=== PATIENT | female | born 1955 | race Caucasian/White ===

== ENCOUNTER → 2022-08-20 08:32 | Outpatient (CLI) | payer MEDICARE, SELFPAY ==
--- NOTE | ~2022-08-20 | CT_ITS ---
EXAMINATION: CT soft tissue neck wo con DATE: 08/20/2022 08:47 INDICATION: Nodule of subcutaneous tissue of neck. Left neck pain. TECHNIQUE: Computed tomography (CT) of the neck was performed without intravenous contrast. Automated exposure control and iterative reconstruction technique were employed. The dose-length product was 4 00.27 mGy-cm. COMPARISON: None FINDINGS: There are no pathologically enlarged lymph nodes. The major salivary glands are normal. The pharyngeal mucosal space and larynx are normal. There is severe spondylosis at C6-C7 and mild spondy losis at other cervical levels. IMPRESSION: 1. No abnormal neck mass or lymphadenopathy. Reviewed, dictated and finalized at location B.
== END ==
PROVIDERS: PCP Family Medicine; Visit Provider Nurse Practitioner Adult Health
DX: R22.1 Localized swelling, mass and lump, neck (principal)
CPT/HCPCS: 70490

== ENCOUNTER 2023-02-12 16:13 | Emergency (ER) | payer MEDICARE, SELFPAY ==
--- NOTE | ~2023-02-12 | XR_ITS ---
EXAMINATION: XR chest 2V Exam Date/Time: 02/12/2023 16:31 CDT HISTORY: cp, RADIATING UP SHOULDER AND TO NECK Comparison: 01/20/2017. RESULT: Lines, tubes, and devices: None. Lungs and pleura: Mild reticulonodular opacities. Cardiomediastinal silhouette: Stable. Other: No acute osseous or upper abdominal finding. IMPRESSION: Pulmonary opacities may represent bronchiolitis, as can be seen with atypical infection, asthma, aspi ration, and small airways disease. Reviewed, dictated and finalized at location K. IMPRESSION: Pulmonary opacities may represent bronchiolitis, as can be seen with atypical i nfection, asthma, aspiration, and small airways disease.
--- NOTE | 2023-02-12 16:14 | ECG_ITS ---
Measurements Intervals [place] Rate: 107 P: 40 WV: 135 QRS: 17 QRSD: 92 T: 39 QT: 341 QTc: 456 Interpretive Statements SINUS TACHYCARDIA POSSIBLE LEFT ATRIAL ENLARGEMENT [-0.1mV P WAVE IN V1/V2] NONSPECIFIC ST & T-WAVE ABNORMALITY ABNORMAL RHYTHM ECG NO PREVIOUS ECG AVAILABLE FOR COMPARISON Electronically Signed On 02-12-2023 18:25:13 CDT by Dieudonne Reyna M.D.
[2023-02-12 16:17] VITALS: BP 174/95; PULSE 58; RESP 18; TEMP 36.7; O2SAT 97
[2023-02-12 16:38] LABS: Basophils Absolute Auto 0.1 K/mm3 (0.0-0.1); Basophils Percent Auto 0.6 % (0.2-1.2); Eosinophils Absolute Auto 0.2 K/mm3 (0-0.3); Eosinophils Percent Auto 1.5 % (0-4.4); Hematocrit 46.7 % (37.0-47.0); Hemoglobin 15.1 g/dL (12.0-15.0); Immature Granulocyte Absolute 0.05 K/mm3 (0.00-0.031); Immature Granulocyte Percent A 0.3 % (0-0.5); Lymphocytes Absolute Auto 2.74 K/mm3 (0.9-3.2); Lymphocytes Percent Auto 19.1 % (18.3-44.2); Mean Corpuscular HGB Conc 32.3 g/dl (32-36); Mean Corpuscular Hemoglobin 31.8 pg (26-34); Mean Corpuscular Volume 98.3 fl (80-100); Mean Platelet Volume 10.8 fl (7.4-10.4); Monocytes Absolute Auto 0.9 K/mm3 (0.1-0.6); Monocytes Percent Auto 6.4 % (2.6-8.5); Neutrophils Absolute Auto 10.3 K/mm3 (1.3-6.7); Neutrophils Percent Auto 72.1 % (45.5-73.1); Platelet Count Result 246 k/mm3 (150-375); Red Blood Count 4.75 M/mm3 (4.2-5.4); Red Cell Distribution Width 13.2 % (11.5-14.5); White Blood Count 14.3 K/mm3 (4.5-10.0)
[2023-02-12 16:48] LABS: Alanine Aminotransferase 54 U/L (6-35); Alkaline Phosphatase 132 U/L (38-126); Anion Gap 9 mmol/L (8-16); Aspartate Amino Transferase 46 U/L (14-36); Bilirubin,Total 0.7 mg/dL (0.2-1.3); Blood Urea Nitrogen 19 mg/dL (7-17); Calcium 9.3 mg/dL (8.4-10.2); Carbon Dioxide 22 mmol/L (22-30); Chloride 106 mmol/L (98-107); Estimated Glomerular Filt Rate > 60; Glucose 101 mg/dL (65-110); Lipase 16 U/L (23-300); Potassium 4.5 mmol/L (3.4-5.0); Sodium 137 mmol/L (137-145)
[2023-02-12 16:53] LABS: Prothrombin Time 13.2 Seconds (11.1-14.7)
[2023-02-12 16:54] LABS: Partial Thromboplastin Time 23.9 SECONDS (22.3-36.8)
[2023-02-12 16:59] LABS: Troponin I 0.032 ng/mL (0.000-0.034)
--- NOTE | 2023-02-12 17:16 | PC.NURSE ---
pt states she feels better and is going home. instructed pt to return if symptoms worsen. ambulated from er without difficulty
== END 2023-02-12 19:07 | disposition left against medical advice (07) ==
PROVIDERS: Emergency Provider General Practice; PCP Family Medicine
DX: R07.9 Chest pain, unspecified (principal)
CPT/HCPCS: 36415; 71046; 80053; 83690; 84484; 85025; 85610; 85730; 93005; 99199

== ENCOUNTER 2023-08-06 20:26 | Observation (INO) | payer MEDICARE, SELFPAY ==
--- NOTE | ~2023-08-06 | XR_ITS ---
EXAMINATION: XR chest 1V portable Exam Date/Time: 08/06/2023 21:00 CDT HISTORY: SOB, COUGH X 1 WEEK Comparison: 02/12/2023. RESULT: Lines, tubes, and devices: None. Lungs and pleura: Moderate mid and lower lung reticular opacities with cuffing. Cardiomediastinal silhouette: Stable. Other: No acute osseous or upper abdominal finding. IMPRESSION: Moderate interstitial edema. Reviewed, dictated and finalized at location K.
[2023-08-06 20:29] VITALS: BP 142/112; PULSE 101; RESP 16; TEMP 36.6; O2SAT 95
[2023-08-06 20:43] VITALS: BP 167/99; PULSE 100; RESP 19; O2SAT 95
[2023-08-06 20:45] VITALS: O2SAT 95
--- NOTE | 2023-08-06 20:47 | PC.NURSE ---
Pt states she no longer wanted to be on oxygen because it is burning my sinuses . Pt took NC off. This RN shut oxygen off and will notify EDP.
[2023-08-06 20:48] VITALS: O2SAT 94
--- NOTE | 2023-08-06 20:54 | ECG_ITS ---
Measurements Intervals [place] Rate: 96 P: 34 VA: 120 QRS: 15 QRSD: 90 T: 85 QT: 367 QTc: 464 Interpretive Statements SINUS RHYTHM POSSIBLE LEFT ATRIAL ENLARGEMENT [-0.1mV P WAVE IN V1/V2] NONSPECIFIC ST & T-WAVE ABNORMALITY COMPARED TO ECG 02/12/2023 16:20:14 SINUS RHYTHM NOW PRESENT Electronically Signed On 08-07-2023 12:42:29 CDT by Dieudonne Reyna M.D.
[2023-08-06 21:49] LABS: Basophils Absolute Auto 0.1 K/mm3 (0.0-0.1); Basophils Percent Auto 0.6 % (0.2-1.2); Eosinophils Absolute Auto 0.2 K/mm3 (0-0.3); Eosinophils Percent Auto 1.7 % (0-4.4); Hematocrit 42.2 % (37.0-47.0); Hemoglobin 13.6 g/dL (12.0-15.0); Immature Granulocyte Absolute 0.03 K/mm3 (0.00-0.031); Immature Granulocyte Percent A 0.3 % (0-0.5); Lymphocytes Absolute Auto 1.96 K/mm3 (0.9-3.2); Lymphocytes Percent Auto 18.6 % (18.3-44.2); Mean Corpuscular HGB Conc 32.2 g/dl (32-36); Mean Corpuscular Hemoglobin 31.6 pg (26-34); Mean Corpuscular Volume 98.1 fl (80-100); Mean Platelet Volume 11.3 fl (7.4-10.4); Monocytes Absolute Auto 0.7 K/mm3 (0.1-0.6); Monocytes Percent Auto 6.4 % (2.6-8.5); Neutrophils Absolute Auto 7.6 K/mm3 (1.3-6.7); Neutrophils Percent Auto 72.4 % (45.5-73.1); Platelet Count Result 202 k/mm3 (150-375); Red Cell Distribution Width 13.5 % (11.5-14.5); White Blood Count 10.5 K/mm3 (4.5-10.0)
[2023-08-06 21:58] LABS: Alanine Aminotransferase 68 U/L (6-35); Albumin Level 4.2 g/dL (3.5-5.1); Alkaline Phosphatase 123 U/L (38-126); Anion Gap 10 mmol/L (8-16); Aspartate Amino Transferase 41 U/L (14-36); Bilirubin,Total 0.5 mg/dL (0.2-1.3); Blood Urea Nitrogen 20 mg/dL (7-17); Calcium 8.8 mg/dL (8.4-10.2); Carbon Dioxide 22 mmol/L (22-30); Chloride 108 mmol/L (98-107); Estimated CRCL calculation 64 ml/min; Estimated Glomerular Filt Rate > 60; Glucose 109 mg/dL (65-110); Potassium 3.6 mmol/L (3.4-5.0); Sodium 140 mmol/L (137-145)
[2023-08-06 22:10] VITALS: BP 164/98; PULSE 96; RESP 20; O2SAT 95
[2023-08-06 23:30] LABS: NT Pro B Type Natriuretic Pept 3650 pg/mL (19.9-100); Troponin I 0.042 ng/mL (0.000-0.034)
--- NOTE | 2023-08-06 23:41 | ED.GENADULT ---
HPI - General Adult General Chief complaint: Shortness of Breath/Dyspnea Stated complaint: sob for about a week, worse today Time Seen by Provider: 08/06/23 21:28 History of Present Illness HPI narrative: This is a 60-year-old female presenting with 3 weeks of fatigue. Patient notes that she has had increased cough, dyspnea on exertion and has been waking up from sleep gasping for air. She also has swelling of her ankles that improves when she lays down at night and gets worse throughout the day. She has no history of heart failure. She denies fever chills chest pain abdominal pain or viral symptoms. Related Data Allergies Allergy/AdvReac Type Severity Reaction Status Date / Time codeine Allergy Unknown SEVERE Verified 08/06/23 20:49 STOMACH CRAMPS/N/V latex Allergy Unknown HIVES Verified 08/06/23 20:49 hydrocodone AdvReac Unknown NAUSEA/VOMI Verified 08/06/23 20:49 TING propoxyphene AdvReac Unknown SEVERE Verified 08/06/23 20:49 NAUSEA/VOMITING Exam Narrative: APPEARANCE: No apparent distress. Head: atraumatic. EYES: EOMI, NOSE: Atraumatic NECK: Trachea midline RESPIRATORY: Crackles in the lung bases, no peripheral edema, speaking in full sentences CARDIOVASCULAR: RRR, no peripheral edema ABDOMINAL: Non-distended MUSCULOSKELETAl: No obvious deformities NEURO: Alert. Moving 4/4 extremities SKIN:: Warm, dry. Normal color PSYCHIATRIC: Normal affect Course Vital Signs Vital signs: Vital Signs Temperature 98 F 08/06/23 20:29 Pulse Rate 101 H 08/06/23 20:29 Respiratory Rate 16 08/06/23 20:29 Blood Pressure 142/112 H 08/06/23 20:29 Pulse Oximetry 95 08/06/23 20:29 Oxygen Delivery Room Air 08/06/23 20:29 Temperature 98 F 08/06/23 20:29 Pulse Rate 100 08/06/23 23:58 Respiratory Rate 18 08/06/23 23:58 Blood Pressure 149/82 H 08/06/23 23:58 Pulse Oximetry 94 08/06/23 23:58 Oxygen Delivery Room Air 08/06/23 20:48 Oxygen Flow Rate 2 08/06/23 20:45 Medical Decision Making MDM Narrative Medical decision making narrative: -Course: 60-year-old female presenting with 3 weeks of dyspnea on exertion and cough. Workup consistent with new onset CHF. Patient will be admitted the hospital for Cardiology evaluation. -DDX includes but is not limited to: New onset CHF, bronchitis, pneumonia, viral syndrome, ACS -Co-morbidities complicating care: hypertension -Social determinants of health: retired labor, lives with her -Hx from independent Sources: at bedside -Independent interpretation of studies: CBC metabolic panel within normal limits. BNP 3600, initial troponin 0.042 chest x-ray showed mild interstitial edema. Independent EKG interpretation: Rhythm [sinus], Rate 96, [place] -[normal], CO -[normal], QRS [narrow], QTC [normal], T waves -[negative for concerning inversions], ST Segments - [Negative for concerning elevations] Final interpretations: [Normal Sinus Rhythm] -Discussion of Management/Consultants: Lawson - Hospitalist -Interventions: 40 mg IV Lasix, 325 mg aspirin -Shared decision making / Disposition: admitted Vital Signs Vital Signs: Vital Signs Temperature 98 F 08/06/23 20:29 Pulse Rate 101 H 08/06/23 20:29 Respiratory Rate 16 08/06/23 20:29 Blood Pressure 142/112 H 08/06/23 20:29 Pulse Oximetry 95 08/06/23 20:29 Oxygen Delivery Room Air 08/06/23 20:29 Temperature 98 F 08/06/23 20:29 Pulse Rate 100 08/06/23 23:58 Respiratory Rate 18 08/06/23 23:58 Blood Pressure 149/82 H 08/06/23 23:58 Pulse Oximetry 94 08/06/23 23:58 Oxygen Delivery Room Air 08/06/23 20:48 Oxygen Flow Rate 2 08/06/23 20:45 Lab Data 08/06/23 21:11 08/06/23 21:11 Labs: Lab Results 08/06/23 08/06/23 08/07/23 Range/Units 21:11 23:04 00:40 WBC 10.5 H (4.5-10.0) K/mm3 RBC 4.30 (4.2-5.4) M/mm3 Hgb 13.6 (12.0-15.0) g/dL Hct 42.2 (37.0-47.0) % MCV 98.1
[2023-08-06 23:47] LABS: Influenza A QL RT-PCR Negative (Negative); Influenza B QL RT-PCR Negative (Negative); RSV RNA, RT-PCR Negative (Negative); SARS-CoV-2 RNA PCR Negative (Negative)
[2023-08-06] MEDS: FUROSEMIDE INJ 40 MG/4 ML VIAL IV PUSH (23:51)
[2023-08-06] MEDS: ASPIRIN 81 MG CHEWABLE TABLET 324 MG PO (23:51)
--- NOTE | 2023-08-06 23:55 | PC.NURSE ---
This RN notified EDP, Dr. Carter of pt feeling nauseated. EDP VORB 4mg zofran IV push. Orders placed by this RN.
[2023-08-06] MEDS: ONDANSETRON INJ 4 MG/2 ML VIAL IV PUSH (23:57)
[2023-08-06 23:58] VITALS: BP 149/82; PULSE 100; RESP 18; O2SAT 94
[2023-08-07] VITALS (21 sets, daily range): BP systolic 131–151; BP diastolic 68–94; PULSE 78–103; RESP 18–22; TEMP 35.7–36.5; O2SAT 95–97; BMI 26.7
--- NOTE | 2023-08-07 | ECHO_ITS ---
Patient Info Name: Fernanda Raya Age: 68 years : 1955 Gender: Female Ht: 67 in Wt: 173 lbs BSA: 1.94 m2 HR: 65 bpm BP: 145 / 85 mmHg Heart Rhythm: Sinus Rhythm Technical Quality: Good Exam Date: 08/07/2023 9:35 AM Exam Location: [facility] Pulmonary Patient Status: Outpatient Admit Date: 08/07/2023 Staff Ordering Physician: Elieser Shukla MD Science Instructor: Satish Palmer RDCS Attending Provider: Ruth Pathak DO Exam Type: CA echo doppler color flow Study Info Indications - CHF Complete two-dimensional, color flow and Doppler transthoracic echocardiogram is performed. Summary 1. Complete two-dimensional, color flow and Doppler transthoracic echocardiogram is performed. 2. Left ventricular chamber dimension is moderately enlarged. 3. There is mildly increased left ventricular wall thickness. 4. Left ventricular systolic function is severely reduced, estimated at 20-25%. 5. There is severe global hypokinesis with more pronounced hypokinesis of the anteroseptal wall. 6. The left ventricular diastolic function is grade I diastolic dysfunction. 7. Right ventricular chamber dimension is normal. 8. Right ventricular systolic function is normal. 9. There is moderate mitral valve regurgitation. 10. There is mild tricuspid valve regurgitation. 11. There is trivial anterior pericardial effusion. Left Ventricle There is severe global hypokinesis with more pronounced hypokinesis of the anteroseptal wall. Left ventricular chamber dimension is moderately enlarged. Left ventricular systolic function is severely reduced, estimated at 20-25%. There is mildly increased left ventricular wall thickness. The left ventricular diastolic function is grade I diastolic dysfunction. Right Ventricle Right ventricular chamber dimension is normal. Right ventricular systolic function is normal. Left Atria Left atrial chamber dimension is normal. Right Atria Right atrial chamber dimension is normal. Atrial Septum Intact interatrial septum visualized by color flow imaging. Aortic Valve The aortic valve is trileaflet. There is no aortic valve stenosis. There is no aortic valve regurgitation. There is mild aortic valve calcification. Pulmonic Valve The pulmonic valve is not well visualized. There is trace pulmonic regurgitation. Mitral Valve There is moderate mitral valve regurgitation. The mitral valve annulus is moderately calcified. Tricuspid Valve There is mild tricuspid valve regurgitation. Pericardium/Pleural The pericardium appears epicardial fat pad. There is trivial anterior pericardial effusion. Inferior Vena Cava Normal inferior vena cava with >50% collapse upon inspiration consistent with normal right atrial pressure, 3 mmHg. Aorta The aortic root size at the sinus of Valsalva is normal. Left Ventricular Outflow Tract Name Value Normal LVOT 2D LVOT Diameter 2.0 cm LVOT Doppler LVOT Peak Gradient 2 mmHg LVOT Mean Gradient 1 mmHg LVOT VTI 17 cm LVOT VTI/AV VTI Ratio 0.6 LVOT Stroke Volume 54 ml LVOT CO
[2023-08-07 01:21] LABS: Troponin I 0.047 ng/mL (0.000-0.034)
--- NOTE | 2023-08-07 03:09 | ADMGEN ---
This patient, Fernanda Raya, was admitted to IMU Room 205-02. Patient/family oriented to hospital policies and general routines including ID bracelet, bed and alarms, visiting hours, pain management, procedures, bathroom and other care routines, personal items, smoking policy, room service/diet, and visiting hours. Information on how to activate the Rapid Response Team has been discussed. Patient/Family are encouraged to report perceived risks to care and to ask questions if they do not understand what they are told or what they should do.
--- NOTE | 2023-08-07 07:46 | PM.IMHP ---
H&P: HPI History of Present Illness Date/Time: 08/07/23 07:46 Chief Complaint: Shortness of breath Narrative: This is a 60-year-old female presenting with 3 weeks of fatigue.? Patient notes that she has had increased cough, dyspnea on exertion and has been waking up from sleep gasping for air.? She also has swelling of her ankles that improves when she lays down at night and gets worse throughout the day.? She has no history of heart failure.? She denies fever chills chest pain abdominal pain or viral symptoms. Review of Systems Review of Systems: - CONSTITUTIONAL: Denies weight loss, fever and chills. - HEENT: Denies changes in vision and hearing - RESPIRATORY: Reports sOB and cough. - CV: Denies palpitations and CP. Reports PND - GI: Denies abdominal pain, nausea, vomiting and diarrhea. - : Denies dysuria and urinary frequency. - MSK: Denies myalgia and joint pain. - SKIN: Denies rash and pruritus. - NEUROLOGICAL: Denies headache and syncope. - PSYCHIATRIC: Denies recent changes in mood. Denies anxiety and depression. [facility] Family History Family History Father Colon cancer Sibling Diabetes mellitus Sibling Acute myocardial infarction Social History Social History Smoking packs per day: 0.5 Smoking cigarettes per day: 10.0 Years smoked: 50 Smoking pack-years: 25.00 Smoking status: Current every day smoker Tobacco type: cigarettes Alcohol intake: never Substance use: never Substance use type: does not use Lack of Transportation: No Lack of Food: Never True Current Housing: I Have Housing Concerned About Future Housing: No Difficulty Paying Gas/Electric Bills: No Difficulty Paying for Meds: No Currently Unemployed: No Education: Decline to Answer Difficulty w/ Childcare or Family Care: No Spiritual care concerns: No Meds Home Medications and Allergies Home Medications Medication Instructions Recorded Confirmed Type amlodipine 5 mg tablet 5 mg PO DAILY 08/07/23 08/07/23 History Allergies Allergy/AdvReac Type Severity Reaction Status Date / Time latex Allergy Unknown HIVES Verified 08/06/23 20:49 codeine AdvReac Unknown SEVERE Verified 08/07/23 14:18 STOMACH CRAMPS/N/V hydrocodone AdvReac Unknown NAUSEA/VOMI Verified 08/06/23 20:49 TING propoxyphene AdvReac Unknown SEVERE Verified 08/06/23 20:49 NAUSEA/VOMITING Vital Signs Vital Signs - 24 hr 08/06/23 20:29 08/06/23 20:43 08/06/23 20:45 Temperature 98 F Pulse Rate 101 H 100 Respiratory Rate 16 19 Blood Pressure 142/112 H 167/99 H Pulse Oximetry 95 95 95 Oxygen Delivery Room Air Nasal Cannula Nasal Cannula Oxygen Flow Rate 2 2 08/06/23 20:48 08/06/23 22:10 08/06/23 23:58 Temperature Pulse Rate 96 100 Respiratory Rate 20 18 Blood Pressure 164/98 H 149/82 H Pulse Oximetry 94 95 94 Oxygen Delivery Room Air Oxygen Flow Rate 08/07/23 02:14 08/07/23 03:51 08/07/23 03:00 Temperature 97.3 F L Pulse Rate 85 78 99 Respiratory Rate 20 20 Blood Pressure 131/68 135/73 Pulse Oximetry 95 97 Oxygen Delivery Oxygen Flow Rate 08/07/23 04:00 08/07/23 05:40 Temperature Pulse Rate 91 82 Respiratory Rate 22 H Blood Pressure Pulse Oximetry Oxygen Delivery Oxygen Flow Rate Exam Narrative: APPEARANCE: No apparent distress. Alert and oriented x 3 Head: atraumatic. EYES:? EOMI, NOSE: Atraumatic NECK: Trachea midline RESPIRATORY:? Clear to auscultation no respiratory distress CARDIOVASCULAR: RRR, trace peripheral edema ABDOMINAL: Non-distended MUSCULOSKELETAl: No obvious deformities NEURO: Alert. Moving 4/4 extremities SKIN:: Warm, dry. Normal color PSYCHIATRIC: Normal affect H&P: Results Labs Labs: Short CBC 08/06/23 Range/Units 21:11 WBC 10.5 H (4.5-10.0) K/mm3 Hgb 13.
[2023-08-07] MEDS: amLODIPine BESYLATE 5 MG TABLET PO (08:51)
[2023-08-07] MEDS: ENOXAPARIN 40 MG/0.4 ML SYRINGE SUB-Q (08:52)
[2023-08-07] MEDS: FUROSEMIDE INJ 40 MG/4 ML VIAL IV PUSH (08:52)
--- NOTE | 2023-08-07 09:06 | PM.CNCAR ---
Assessment and Plan Assessment and plan (1) Cardiomyopathy: Code(s): I42.9 - Cardiomyopathy, unspecified Status: Acute Assessment and Plan: New diagnosis. EF 20-25% with severe global hypokinesis with more pronounced hypokinesis of the anteroseptal wall. Moderate MR. Does not appear significantly volume overloaded Will start the standard guideline directed medical therapy with Entresto, beta-sancho, spironolactone, and Jardiance. Will discontinue home amlodipine to give blood pressure room for GDMT. Ischemia evaluation tomorrow with coronary angiogram. I discussed possible risks with this procedure. Patient understands and is willing to proceed. Will need to discuss LifeVest prior to discharge Further recommendations to follow [facility] (2) Elevated troponin: Code(s): R79.89 - Other specified abnormal findings of blood chemistry Status: Acute Assessment and Plan: Mild, flat troponin elevation. Probably secondary to CHF. No chest pain. As above, undergoing cath tomorrow. History of Present Illness History of Present Illness Consult date/time: 08/07/23 09:06 Requesting physician: Elieser Shukla MD Consult reason: congestive heart failure Reason For Visit: New CHF Narrative: Fernanda Raya 6-year-old female with a history of hypertension. She comes to the hospital with complaints of shortness of breath, orthopnea, dyspnea with exertion, and ankle swelling. She started to notice the symptoms about 3-4 weeks ago. She has had progression of her shortness of breath and swelling during that time, and yesterday noted that she could not walk across the yd without having to stop and take a break. She denies any personal cardiac history but does have a strong family history of coronary artery disease. Denies any chest pain palpitations, syncope, presyncope. She has received IV Lasix and has had improvement in her breathing and swelling. Currently, lying comfortably in bed and is free from any complaints aside from intermittent leg cramping. Review of Systems Review of Systems: All systems reviewed & are unremarkable except as noted in HPI and below [facility] Family History Family History Father Colon cancer Sibling Diabetes mellitus Sibling Acute myocardial infarction Social History Social History Smoking packs per day: 0.5 Smoking cigarettes per day: 10.0 Years smoked: 50 Smoking pack-years: 25.00 Smoking status: Current every day smoker Tobacco type: cigarettes Alcohol intake: never Substance use: never Substance use type: does not use Lack of Transportation: No Lack of Food: Never True Current Housing: I Have Housing Concerned About Future Housing: No Difficulty Paying Gas/Electric Bills: No Difficulty Paying for Meds: No Currently Unemployed: No Education: Decline to Answer Difficulty w/ Childcare or Family Care: No Spiritual care concerns: No Meds Home Medications and Allergies Home Medications Medication Instructions Recorded Confirmed Type amlodipine 5 mg tablet 5 mg PO DAILY 08/07/23 08/07/23 History Allergies Allergy/AdvReac Type Severity Reaction Status Date / Time codeine Allergy Unknown SEVERE Verified 08/06/23 20:49 STOMACH CRAMPS/N/V latex Allergy Unknown HIVES Verified 08/06/23 20:49 hydrocodone AdvReac Unknown NAUSEA/VOMI Verified 08/06/23 20:49 TING propoxyphene AdvReac Unknown SEVERE Verified 08/06/23 20:49 NAUSEA/VOMITING Vital Signs Vital Signs - 24 hr 08/06/23 20:29 08/06/23 20:43 08/06/23 20:45 Temperature 36.6 C Pulse Rate 101 H 100 Respiratory Rate 16 19 Blood Pressure 142/112 H 167/99 H Pulse Oximetry 95 95 95 Oxygen Delivery Room Air Nasal Cannula Nasal Cannula Oxygen Flow Rate 2 2 08/06/23 20:48 08/06/23 22:10 08/06/23 23:58 Temperature
[2023-08-07 12:18] LABS: Hematocrit 44.6 % (37.0-47.0); Hemoglobin 14.3 g/dL (12.0-15.0); Mean Corpuscular HGB Conc 32.1 g/dl (32-36); Mean Corpuscular Hemoglobin 31.4 pg (26-34); Mean Platelet Volume 11.3 fl (7.4-10.4); Platelet Count Result 224 k/mm3 (150-375); Red Blood Count 4.55 M/mm3 (4.2-5.4); Red Cell Distribution Width 13.5 % (11.5-14.5); White Blood Count 8.3 K/mm3 (4.5-10.0)
[2023-08-07 12:25] LABS: Magnesium 1.9 mg/dL (1.6-2.3)
[2023-08-07 12:26] LABS: Anion Gap 8 mmol/L (8-16); Blood Urea Nitrogen 17 mg/dL (7-17); Carbon Dioxide 26 mmol/L (22-30); Chloride 104 mmol/L (98-107); Estimated CRCL calculation 58 ml/min; Estimated Glomerular Filt Rate > 60; Glucose 145 mg/dL (65-110); Potassium 3.5 mmol/L (3.4-5.0); Sodium 138 mmol/L (137-145)
[2023-08-07] MEDS: POTASSIUM CHLORIDE 20 MEQ ER TABLET 40 MEQ PO (13:29)
[2023-08-07] MEDS: EMPAGLIFLOZIN 10 MG TABLET PO (17:12)
[2023-08-07] MEDS: SPIRONOLACTONE 25 MG TABLET PO (17:12)
[2023-08-07] MEDS: METOPROLOL SUCCINATE EXT REL 12.5 MG TABCR PO (17:12)
[2023-08-07] MEDS: SACUBITRIL/VALSARTAN 24-26 MG TABLET 1 TAB PO (20:11)
[2023-08-08] VITALS (27 sets, daily range): BP systolic 110–142; BP diastolic 62–94; PULSE 74–94; RESP 16–20; TEMP 35.8–36.6; O2SAT 93–98
[2023-08-08] MEDS: METOPROLOL SUCCINATE EXT REL 12.5 MG TABCR PO (07:54)
[2023-08-08] MEDS: SACUBITRIL/VALSARTAN 24-26 MG TABLET 1 TAB PO ×2 (07:55→20:06)
[2023-08-08] MEDS: EMPAGLIFLOZIN 10 MG TABLET PO (07:55)
[2023-08-08 10:07] LABS: Hematocrit 50.2 % (37.0-47.0); Hemoglobin 15.7 g/dL (12.0-15.0); Mean Corpuscular HGB Conc 31.3 g/dl (32-36); Mean Corpuscular Hemoglobin 31.4 pg (26-34); Mean Corpuscular Volume 100.4 fl (80-100); Mean Platelet Volume 11.1 fl (7.4-10.4); Platelet Count Result 233 k/mm3 (150-375); Red Cell Distribution Width 13.4 % (11.5-14.5); White Blood Count 7.7 K/mm3 (4.5-10.0)
[2023-08-08 10:15] LABS: Anion Gap 7 mmol/L (8-16); Blood Urea Nitrogen 15 mg/dL (7-17); Calcium 9.5 mg/dL (8.4-10.2); Carbon Dioxide 27 mmol/L (22-30); Chloride 108 mmol/L (98-107); Estimated CRCL calculation 58 ml/min; Estimated Glomerular Filt Rate > 60; Glucose 102 mg/dL (65-110); Potassium 4.1 mmol/L (3.4-5.0); Sodium 142 mmol/L (137-145)
[2023-08-08 10:22] LABS: Magnesium 2.3 mg/dL (1.6-2.3)
--- NOTE | 2023-08-08 11:24 | WPDMODSED ---
Moderate Sedation Note-Pt Data Patient Data Diagnosis: Cardiomyopathy Present Complaint: Cardiomyopathy Procedure to be performed/Plan: Coronary angiography, left heart cath, +/- PCI Allergies Allergy/AdvReac Type Severity Reaction Status Date / Time latex Allergy Unknown HIVES Verified 08/06/23 20:49 codeine AdvReac Unknown SEVERE Verified 08/07/23 14:18 STOMACH CRAMPS/N/V hydrocodone AdvReac Unknown NAUSEA/VOMI Verified 08/06/23 20:49 TING propoxyphene AdvReac Unknown SEVERE Verified 08/06/23 20:49 NAUSEA/VOMITING Home Medications Medication Instructions Recorded Confirmed Type amlodipine 5 mg tablet 5 mg PO DAILY 08/07/23 08/07/23 History Current Medications: Active Medications Acetaminophen (Acetaminophen 325 Mg Tablet) 650 mg PO Q6H PRN PRN Reason: Mild Pain (1-3) or Fever Empagliflozin (Empagliflozin 10 Mg Tablet) 10 mg PO DAILY [facility] Last Admin: 08/08/23 07:55 Dose: 10 mg Enoxaparin Sodium (Enoxaparin 40 Mg/0.4 Ml Syringe) 40 mg SUB-Q DAILY [facility] Last Admin: 08/07/23 08:52 Dose: 40 mg Sodium Chloride (Normal Saline Iv) 1,000 mls @ 125 mls/hr IV CONT .Q8H ONE Stop: 08/08/23 19:23 Metoprolol Succinate (Metoprolol Succinate Ext Rel 12.5 Mg Tabcr) 12.5 mg PO QAM [facility] Last Admin: 08/08/23 07:54 Dose: 12.5 mg Perflutren Lipid Microsphere (Perflutren Lipid Microspheres 1.5 Ml Vial Diluted To 10 Ml Total Volume) 0 ml IV PUSH ONCE PRN; Protocol PRN Reason: adequate visualization Stop: 08/10/23 08:09 Sacubitril/Valsartan (Sacubitril/Valsartan 24-26 Mg Tablet) 1 tab PO Q12HR [facility] Last Admin: 08/08/23 07:55 Dose: 1 tab Spironolactone (Spironolactone 25 Mg Tablet) 25 mg PO QAM [facility] Last Admin: 08/07/23 17:12 Dose: 25 mg Sedation/Anesthesia: No previous sedation/anesthesia problems (including family history). [facility] Family History Family History Father Colon cancer Sibling Diabetes mellitus Sibling Acute myocardial infarction Social History Social History Smoking packs per day: 0.5 Smoking cigarettes per day: 10.0 Years smoked: 50 Smoking pack-years: 25.00 Smoking status: Current every day smoker Tobacco type: cigarettes Alcohol intake: never Substance use: never Substance use type: does not use Lack of Transportation: No Lack of Food: Never True Current Housing: I Have Housing Concerned About Future Housing: No Difficulty Paying Gas/Electric Bills: No Difficulty Paying for Meds: No Currently Unemployed: No Education: Decline to Answer Difficulty w/ Childcare or Family Care: No Spiritual care concerns: No Mod Sed Physical Exam Physical Exam Pre Procedural Exam: Normal: Appearance, Lungs, Heart Rate, Heart Rhythm, Neuro Exam, Abdomen, Extremities and Skin Hours since solid foods: 12 Hours since liquid intake: 8 Mallampati Classification: class III Internal Medicine - PN: Obj Da Vital Signs Vital Signs: Vital Signs - 24 hr 08/07/23 11:41 08/07/23 16:03 08/07/23 12:00 Temperature 35.8 C L 36.3 C L Pulse Rate 89 96 94 Respiratory Rate 18 20 Blood Pressure 144/88 H 146/94 H Pulse Oximetry 96 96 Oxygen Delivery 08/07/23 14:00 08/07/23 16:00 08/07/23 17:12 Temperature Pulse Rate 87 86 97 Respiratory Rate Blood Pressure Pulse Oximetry Oxygen Delivery 08/07/23 18:00 08/07/23 19:26 08/07/23 20:00 Temperature 36.2 C L Pulse Rate 88 92 91 Respiratory Rate 18 Blood Pressure 151/81 H Pulse Oximetry 95 Oxygen Delivery 08/07/23 20:00 08/07/23 22:00 08/07/23 23:34 Temperature 36.5 C Pulse Rate 91 88 83 Respiratory Rate 18 18 Blood Pressure 135/86 Pulse Oximetry 95 96 Oxygen Delivery Room Air 08/08/23 00:00 08/08/23 00:00 08/08/23 02:00 Temperature Pulse Rate 86 86 84 Respiratory Rate 18 Blood Pressure Pulse Oximetry 96 Oxygen D
--- NOTE | 2023-08-08 11:26 | WPDCARDPROC ---
Cardiac Cath Procedure Note Date of procedure:: 08/08/23 Performing physician:: CATHETERIZATION LABORATORY REPORT Procedure Date: 08/08/2023 Machining Technician: Dieudonne Reyna M.D., [facility]? Referring Physician: Dieudonne Reyna M.D. ? Anesthesia: Versed and Fentanyl were ordered and given in my presence at 10:50, procedure ended at 11:11. Supervision of nurse monitored moderate sedation with Versed and Fentanyl was provided for 21 minutes. Total of Versed 2mg and Fentanyl 50mcg were administered by the [employer]ose End Finder RN Rima Khoury. Pre-op Diagnosis: Heart failure with reduced ejection fraction, coronary artery disease Post-op Diagnosis: 1. Non-obstructive coronary artery disease 2. Left ventricular end-diastolic pressure of 9mmHg Procedure(s): Left heart catheterization with coronary angiography Access Site: Right radial artery Brief History and Clinical Indications: Patient is a 68 year old female who is referred for cardiac catheterization for new diagnosis of systolic heart failure. All risks, benefits and alternatives to left heart catheterization with or without percutaneous coronary intervention was discussed at length with the patient. Risk of complications including but not limited to bleeding, infection, arrhythmia, stroke, worsening kidney function, blood loss, groin hematoma, limb loss, emergency coronary artery bypass grafting, and even were discussed with the patient and all questions were answered. The patient understood and wished to proceed. Time out called, patient name, date of , medical record number, allergies, procedure performed, identify Machining Technician, patient and staff member concurred with accurate data, procedure carried on. Findings: LEFT HEART CATHETERIZATION FINDINGS: 1. Left main: Large caliber vessel. The left main coronary artery is widely patent without any significant obstructive disease. 2. Left anterior descending: Large caliber vessel that tapers to small caliber distally. Heavy calcifications in the proximal LAD. There is mild disease in the mid LAD at the level of the bifurcation of the first diagonal branch. Remainder of the LAD has luminal irregularities. The first diagonal branch is a large caliber vessel with luminal irregularities. 3. Left circumflex: Large caliber vessel. The left circumflex artery and the main marginal branches have mild luminal irregularities without any significant obstructive angiographic disease. 4. Right coronary artery: Large caliber vessel. The proximal-mid RCA has a moderate 50% stenosis. Remainder of the RCA has mild luminal irregularities without any significant obstructive angiographic disease. The RPLV and RPDA are large caliber vessels with luminal irregularities. The RCA is the dominant vessel. 5. Left ventricle: A. End-diastolic pressure 9mmHg. B. LV gram deferred. C. No significant gradient across aortic valve on catheter pullback. Description of Procedure: Informed consent signed and placed in the chart. Patient transferred to laboratory mechanical technician room. Prepped and draped in usual sterile fashion. 2% lidocaine injected subcutaneously in right wrist area. 22-gauge venipuncture catheter used to access the right radial artery under ultrasound guidance. 6-FR slender sheath placed in right radial artery. Nitroglycerine and Verapamil were given intraarterial through the sheath. Versacore wire advanced under fluoroscopy 5F Tig 4 diagnostic catheter engaged Left Main Coronary Artery. 5F Tig 4 diagnostic catheter engaged Right Coronary Artery Multiple orthogonal angiogram obtained and reviewed 5F Pigtail diagnostic catheter crossed aortic valve to obtain LVEDP, LV angiogram deferred. Hemostasis was achieved by application of TR band. ? Assessment: 1. Non-obstructive coronary artery disease 2. Left ventricular end-diastolic pressure of 9mmHg Post Operative Condition: Stable No significant blood loss Disposition: Floor Plan: The patient will be
--- NOTE | 2023-08-08 11:27 | PC.NURSE ---
pt to [facility] at 1030
--- NOTE | 2023-08-08 12:06 | PM.PNCARD ---
Progress Note: A&P Assessment and Plan (1) Acute HFrEF (heart failure with reduced ejection fraction): Code(s): I50.21 - Acute systolic (congestive) heart failure Status: Acute Assessment and Plan: New diagnosis of heart failure with reduced ejection fraction with LVEF 20-25% with moderate MR.? Continue standard guideline directed medical therapy with Entresto, beta-sancho, Spironolactone, and Jardiance.? Discontinued home Amlodipine to give blood pressure room for GDMT. Cardiac cath with NOCAD, LVEDP is normal at 9mmHg. Given normal LVEDP, will not give additional Lasix. With the start of Entresto, patient may likely not need a maintenance dose of Lasix. Monitor volume status and can give Lasix PRN. Discussed LifeVest with the patient, does not wish for LifeVest at this time. Further uptitration and optimization of GDMT can be done as outpatient. Anticipate possible discharge 08/09. (2) Elevated troponin: Code(s): R79.89 - Other specified abnormal findings of blood chemistry Status: Acute Assessment and Plan: Mild, flat troponin elevation.? Probably secondary to CHF.? No chest pain.? Cardiac cath with non-obstructive coronary artery disease. Management of NOCAD as noted below. (3) Coronary artery disease: Code(s): I25.10 - Atherosclerotic heart disease of [place] coronary artery without angina pectoris Status: Acute Assessment and Plan: Cardiac cath with non-obstructive coronary artery disease. Start ASA 81mg once daily and statin. Subjective Date/time seen: 08/08/23 12:06 Interval history: Reason for visit: Acute systolic heart failure HPI: Fernanda Raya is a 68-year-old female with a history of hypertension.? She comes to the hospital with complaints of shortness of breath, orthopnea,? dyspnea with exertion, and ankle swelling.? She started to notice the symptoms about 3-4 weeks ago.? She has had progression of her shortness of breath and swelling during that time, and yesterday noted that she could not walk across the yd without having to stop and take a break.? She denies any personal cardiac history but does have a strong family history of coronary artery disease.? Denies any chest pain palpitations, syncope, presyncope.? She has received IV Lasix and has had improvement in her breathing and swelling. ?Currently, lying comfortably in bed and is free from any complaints aside from intermittent leg cramping. Date of service 08/08: Cardiac cath today. Patient without chest pain, palpitations, shortness of breath, orthopnea. Exam Const: General: comfortable and no acute distress HENMT: Mouth: Yes moist mucous membranes Eyes: General: appearance normal, both eyes and all related structures Sclera: sclerae normal Neck: Neck: supple Resp: Effort & Inspection: normal respiratory effort Auscultation: clear to auscultation bilaterally Cardio: Rate: regular rate Rhythm: regular rhythm Heart sounds: no murmurs Skin: General skin exam: normal color Neuro: Speech: normal speech Psych: Mental Status: mental status grossly normal Affect: normal affect Objective Data Vital Signs Vital Signs: Vital Signs - 24 hr 08/07/23 16:03 08/07/23 14:00 08/07/23 16:00 Temperature 36.3 C L Pulse Rate 96 87 86 Respiratory Rate 20 Blood Pressure 146/94 H Pulse Oximetry 96 Oxygen Delivery 08/07/23 17:12 08/07/23 18:00 08/07/23 19:26 Temperature 36.2 C L Pulse Rate 97 88 92 Respiratory Rate 18 Blood Pressure 151/81 H Pulse Oximetry 95 Oxygen Delivery 08/07/23 20:00 08/07/23 20:00 08/07/23 22:00 Temperature Pulse Rate 91 91 88 Respiratory Rate 18 Blood Pressure Pulse Oximetry 95 Oxygen Delivery Room Air 08/07/23 23:34 08/08/23 00:00 08/08/23 00:00 Temperature 36.5 C Pulse Rate 83 86 86 Respiratory Rate 18 18 Blood Pressure 135/86 Pulse Oximetry 96 96 Oxygen Delivery Room Air 08/08/23 02:00
--- NOTE | 2023-08-08 14:04 | PM.IMPN ---
Progress Note: A&P Assessment and Plan (1) New onset of congestive heart failure: Code(s): I50.9 - Heart failure, unspecified Status: Acute (2) Elevated troponin: Code(s): R79.89 - Other specified abnormal findings of blood chemistry Status: Acute Plan This is a 68-year-old female who presents with cough shortness of breath on exertion history of PND generalized fatigue. Also reports swelling of her ankle ongoing since 3 weeks. Chest x-ray with mild interstitial edema. BNP 3600. CBC CMP normal limit blood pressure elevated. Does have history of hypertension. EKG with nonspecific changes. Diagnosed new onset congestive heart failure. IV Lasix 40 mg given. Mild troponin elevation with flat trajectory. Mild leukocytosis at 10.5 influenza RSV and COVID screen negative. Echocardiogram showed EF of 20-25% severe global hypokinesis. More pronounced hypokinesis of the anteroseptal wall grade 1 diastolic dysfunction. Moderate MR mild TR trivial pericardial effusion.. Continue diuresis with Lasix 40 mg IV daily. DVT prophylaxis with Lovenox Status post cardiac catheterization 08/08/2023: Nonobstructive coronary artery disease. LVEDP 9 mm Hg Started on Entresto beta-sancho spironolactone Jardiance. Goal-directed medical treatment LifeVest discussed again with the patient and refuses. Nonobstructive coronary artery disease on aspirin and statin Subjective Date/time seen: 08/08/23 14:04 Interval history: No overnight events. Feeling much better. Leg swelling has improved. Review of Systems Review of Systems: All systems reviewed & are unremarkable except as noted in HPI and below Exam Narrative: APPEARANCE: No apparent distress. Alert and oriented x 3 Head: atraumatic. EYES:? EOMI, NOSE: Atraumatic NECK: Trachea midline RESPIRATORY:? Clear to auscultation no respiratory distress CARDIOVASCULAR: RRR, no edema ABDOMINAL: Non-distended MUSCULOSKELETAl: No obvious deformities NEURO: Alert. Moving 4/4 extremities SKIN:: Warm, dry. Normal color PSYCHIATRIC: Normal affect Objective Data Vital Signs Vital Signs: Vital Signs - 24 hr 08/07/23 16:03 08/07/23 16:00 08/07/23 17:12 Temperature 97.4 F L Pulse Rate 96 86 97 Respiratory Rate 20 Blood Pressure 146/94 H Pulse Oximetry 96 Oxygen Delivery 08/07/23 18:00 08/07/23 19:26 08/07/23 20:00 Temperature 97.1 F L Pulse Rate 88 92 91 Respiratory Rate 18 Blood Pressure 151/81 H Pulse Oximetry 95 Oxygen Delivery 08/07/23 20:00 08/07/23 22:00 08/07/23 23:34 Temperature 97.7 F Pulse Rate 91 88 83 Respiratory Rate 18 18 Blood Pressure 135/86 Pulse Oximetry 95 96 Oxygen Delivery Room Air 08/08/23 00:00 08/08/23 00:00 08/08/23 02:00 Temperature Pulse Rate 86 86 84 Respiratory Rate 18 Blood Pressure Pulse Oximetry 96 Oxygen Delivery Room Air 08/07/23 20:48 08/08/23 04:00 08/08/23 04:00 Temperature Pulse Rate 82 82 Respiratory Rate 18 Blood Pressure Pulse Oximetry 96 96 Oxygen Delivery Room Air Room Air 08/08/23 03:58 08/08/23 05:27 08/08/23 07:47 Temperature 97.8 F 96.5 F L Pulse Rate 78 74 79 Respiratory Rate 18 18 Blood Pressure 130/81 134/81 Pulse Oximetry 96 96 Oxygen Delivery 08/08/23 07:54 08/08/23 11:25 08/08/23 11:40 Temperature Pulse Rate 84 85 86 Respiratory Rate 16 16 Blood Pressure 138/90 142/94 H Pulse Oximetry 95 93 Oxygen Delivery Room Air Room Air 08/08/23 11:55 08/08/23 12:10 08/08/23 12:30 Temperature Pulse Rate 81 87 81 Respiratory Rate 16 16 19 Blood Pressure 131/78 135/87 127/80 Pulse Oximetry 93 95 94 Oxygen Delivery Room Air Room Air Room Air 08/08/23 12:45 08/08/23 13:00 08/08/23 13:15 Temperature Pulse Rate 83 85 87 Respiratory Rate 19 20 19 Blood Pressure 120/77 122/84 133/91 H Pulse Oximetry 94 95 93 Oxygen Delivery Room Air Room Air Room Air Intake/Output Intake/Output: Inta
[2023-08-08] MEDS: SPIRONOLACTONE 25 MG TABLET PO (16:27)
[2023-08-08] MEDS: SODIUM CHLORIDE 0.9% IV 1,000 ML 125 ML IV CONT (16:28)
[2023-08-09] VITALS (11 sets, daily range): BP systolic 118–141; BP diastolic 70–75; PULSE 69–93; RESP 18; TEMP 35.8–35.9; O2SAT 94–98
[2023-08-09 05:44] LABS: Basophils Absolute Auto 0.1 K/mm3 (0.0-0.1); Basophils Percent Auto 0.7 % (0.2-1.2); Eosinophils Absolute Auto 0.1 K/mm3 (0-0.3); Eosinophils Percent Auto 1.9 % (0-4.4); Hematocrit 45.3 % (37.0-47.0); Hemoglobin 14.5 g/dL (12.0-15.0); Immature Granulocyte Absolute 0.03 K/mm3 (0.00-0.031); Immature Granulocyte Percent A 0.4 % (0-0.5); Lymphocytes Absolute Auto 2.26 K/mm3 (0.9-3.2); Lymphocytes Percent Auto 30.7 % (18.3-44.2); Mean Corpuscular Hemoglobin 31.7 pg (26-34); Mean Corpuscular Volume 99.1 fl (80-100); Mean Platelet Volume 11.2 fl (7.4-10.4); Monocytes Absolute Auto 0.7 K/mm3 (0.1-0.6); Monocytes Percent Auto 9.9 % (2.6-8.5); Neutrophils Absolute Auto 4.2 K/mm3 (1.3-6.7); Neutrophils Percent Auto 56.4 % (45.5-73.1); Platelet Count Result 212 k/mm3 (150-375); Red Blood Count 4.57 M/mm3 (4.2-5.4); Red Cell Distribution Width 13.5 % (11.5-14.5); White Blood Count 7.4 K/mm3 (4.5-10.0)
[2023-08-09 05:50] LABS: Alanine Aminotransferase 82 U/L (6-35); Albumin Level 3.7 g/dL (3.5-5.1); Alkaline Phosphatase 103 U/L (38-126); Anion Gap 5 mmol/L (8-16); Aspartate Amino Transferase 47 U/L (14-36); Bilirubin,Total 0.5 mg/dL (0.2-1.3); Blood Urea Nitrogen 17 mg/dL (7-17); Calcium 8.7 mg/dL (8.4-10.2); Carbon Dioxide 24 mmol/L (22-30); Chloride 111 mmol/L (98-107); Estimated CRCL calculation 58 ml/min; Estimated Glomerular Filt Rate > 60; Glucose 101 mg/dL (65-110); Magnesium 2.1 mg/dL (1.6-2.3); Potassium 4.1 mmol/L (3.4-5.0); Sodium 140 mmol/L (137-145)
[2023-08-09] MEDS: ASPIRIN 81 MG ENTERIC TABLET PO (10:11)
[2023-08-09] MEDS: SPIRONOLACTONE 25 MG TABLET PO (10:11)
[2023-08-09] MEDS: METOPROLOL SUCCINATE EXT REL 12.5 MG TABCR PO (10:11)
[2023-08-09] MEDS: ATORVASTATIN 40 MG TABLET 80 MG PO (10:11)
[2023-08-09] MEDS: EMPAGLIFLOZIN 10 MG TABLET PO (10:11)
[2023-08-09] MEDS: ENOXAPARIN 40 MG/0.4 ML SYRINGE SUB-Q (10:11)
[2023-08-09] MEDS: SACUBITRIL/VALSARTAN 24-26 MG TABLET 1 TAB PO (10:11)
--- NOTE | 2023-08-09 10:44 | PM.PNCARD ---
Progress Note: A&P Assessment and Plan (1) Acute HFrEF (heart failure with reduced ejection fraction): Code(s): I50.21 - Acute systolic (congestive) heart failure Status: Acute Assessment and Plan: New diagnosis of heart failure with reduced ejection fraction with LVEF 20-25% with moderate MR.? Continue standard guideline directed medical therapy with Entresto, beta-sancho, Spironolactone, and Jardiance.? Discontinued home Amlodipine to give blood pressure room for GDMT. Will increase metoprolol succinate to 25 mg p.o. daily Cardiac cath with NOCAD, LVEDP is normal at 9mmHg. Given normal LVEDP, will not give additional Lasix. With the start of Entresto, patient may likely not need a maintenance dose of Lasix. Monitor volume status and can give Lasix PRN. Discussed LifeVest with the patient, does not wish for LifeVest at this time. Further uptitration and optimization of GDMT can be done as outpatient. Okay for discharge (2) Elevated troponin: Code(s): R79.89 - Other specified abnormal findings of blood chemistry Status: Acute Assessment and Plan: Mild, flat troponin elevation.? Probably secondary to CHF.? No chest pain.? Cardiac cath with non-obstructive coronary artery disease. Management of NOCAD as noted below. (3) Coronary artery disease: Code(s): I25.10 - Atherosclerotic heart disease of [place] coronary artery without angina pectoris Status: Acute Assessment and Plan: Cardiac cath with non-obstructive coronary artery disease. Continue aSA 81mg once daily and statin. Subjective Date/time seen: 08/09/23 10:44 Interval history: Reason for visit: Acute systolic heart failure HPI: Fernanda Raya is a 68-year-old female with a history of hypertension.? She comes to the hospital with complaints of shortness of breath, orthopnea,? dyspnea with exertion, and ankle swelling.? She started to notice the symptoms about 3-4 weeks ago.? She has had progression of her shortness of breath and swelling during that time, and yesterday noted that she could not walk across the yd without having to stop and take a break.? She denies any personal cardiac history but does have a strong family history of coronary artery disease.? Denies any chest pain palpitations, syncope, presyncope.? She has received IV Lasix and has had improvement in her breathing and swelling. ?Currently, lying comfortably in bed and is free from any complaints aside from intermittent leg cramping. Date of service 08/09/2023: Catheterization did not show any obstructive coronary disease yesterday. She has no chest pain or shortness breath at rest Review of Systems Review of Systems: All systems reviewed & are unremarkable except as noted in HPI and below ENT: Reports Normal hearing present Cardiovascular: Cardiovascular: Denies chest pain and Denies pedal edema Gastrointestinal: Gastrointestinal: Denies bloating Genitourinary: Genitourinary: Denies hematuria Integumentary/Breasts: Skin/Breast: Denies skin pain Exam Const: General: comfortable, no acute distress, alert and awake Orientation/consciousness: patient oriented x3 HENMT: Head: normal to inspection Mouth: Yes moist mucous membranes Eyes: General: appearance normal, both eyes and all related structures Sclera: sclerae normal Neck: Neck: normal visual inspection, supple and no JVD Carotids: normal carotid upstroke Resp: Effort & Inspection: normal respiratory effort Auscultation: clear to auscultation bilaterally Cardio: Rate: regular rate Rhythm: regular rhythm Heart sounds: S1 normal heart sound present, S2 normal heart sound present and no murmurs GI: Auscultation: normal bowel sounds Skin: General skin exam: normal color Neuro: General: patient oriented x3 Speech: normal speech Extrem: General: normal to inspection Other: trace pedal edema Psych: Appearance: grossly normal Mental Status: mental status grossly fernanda
--- NOTE | 2023-08-09 12:35 | PM.DS ---
DS: Admitting Diagnosis Discharge Date 08/09/2023 Admitting Diagnosis Shortness of breath DS: Discharge Diagnosis Discharge Diagnosis (1) New onset of congestive heart failure: Code(s): I50.9 - Heart failure, unspecified Status: Acute (2) Elevated troponin: Code(s): R79.89 - Other specified abnormal findings of blood chemistry Status: Acute DS: Summary Hospital Course Hospital Course: This is a 68-year-old female who presents with cough shortness of breath on exertion history of PND generalized fatigue.? Also reports swelling of her ankle ongoing since 3 weeks.? Chest x-ray with mild interstitial edema.? BNP 3600.? CBC CMP normal limit blood pressure elevated.? Does have history of hypertension.? EKG with nonspecific changes.? Diagnosed new onset congestive heart failure.? IV Lasix 40 mg given.? Mild troponin elevation with flat trajectory.? Mild leukocytosis at 10.5 influenza RSV and COVID screen negative.? Echocardiogram showed EF of 20-25% severe global hypokinesis.? More pronounced hypokinesis of the anteroseptal wall grade 1 diastolic dysfunction.? Moderate MR mild TR trivial pericardial effusion..? Continue diuresis with Lasix 40 mg IV daily.? DVT prophylaxis with Lovenox Status post cardiac catheterization 08/08/2023: Nonobstructive coronary artery disease.? LVEDP 9 mm Hg Started on Entresto beta-sancho spironolactone Jardiance.? Goal-directed medical treatment. LifeVest discussed again with the patient and refuses. Nonobstructive coronary artery disease on aspirin and statin hypertension amlodipine discontinued due to low EF. Follow-up with Cardiology on outpatient basis. Time Spent with Patient Time attestation: Total time spent providing and/or coordinating discharge services: 35 minutes Exam Narrative: APPEARANCE: No apparent distress. Alert and oriented x 3 Head: atraumatic. EYES:? EOMI, NOSE: Atraumatic NECK: Trachea midline RESPIRATORY:? Clear to auscultation no respiratory distress CARDIOVASCULAR: RRR, no edema ABDOMINAL: Non-distended MUSCULOSKELETAl: No obvious deformities NEURO: Alert. Moving 4/4 extremities SKIN:: Warm, dry. Normal color PSYCHIATRIC: Normal affect DS: Data Data Completed and Pending Completed studies during hospitalization: Exam Type: ? ? CA echo doppler color flow Study Info Indications ?? ? - CHF Complete two-dimensional, color flow and Doppler transthoracic echocardiogram is performed. Account #: ? ? [id number] Summary ? 1. Complete two-dimensional, color flow and Doppler transthoracic echocardiogram is performed. ? 2. Left ventricular chamber dimension is moderately enlarged. ? 3. There is mildly increased left ventricular wall thickness. ? 4. Left ventricular systolic function is severely reduced, estimated at 20-25%. ? 5. There is severe global hypokinesis with more pronounced hypokinesis of the anteroseptal wall. ? 6. The left ventricular diastolic function is grade I diastolic dysfunction. ? 7. Right ventricular chamber dimension is normal. ? 8. Right ventricular systolic function is normal. ? 9. There is moderate mitral valve regurgitation. ? 10. There is mild tricuspid valve regurgitation. ? 11. There is trivial anterior pericardial effusion. Left Ventricle ? There is severe global hypokinesis with more pronounced hypokinesis of the anteroseptal wall. ? Left ventricular chamber dimension is moderately enlarged. ? Left ventricular systolic function is severely reduced, estimated at 20-25%. ? There is mildly increased left ventricular wall thickness. ? The left ventricular diastolic function is grade I diastolic dysfunction. Right Ventricle ? Right ventricular chamber dimension is normal. ? Right ventricular systolic function is normal. Left Atria ? Left atrial chamber dimension is normal. Right Atria ? Right atrial chamber dimension is normal. Atrial Septum ? Intact interatrial septum visualized by color flow imaging.
[2023-08-09] MEDS: diphenhydrAMINE HCl CAP 25 MG CAPSULE PO (14:30)
--- NOTE | 2023-08-09 15:02 | PC.NURSE ---
Attempted to discharge patient and patient reported itchiness and burning around her nose and upper lip. No facial swelling or redness, no wheezing or shortness of breath present, VSS. Informed Dr Shukla of patient's complaint, came to bedside to assess the patient. Po Benadryl administered.
== END 2023-08-09 15:40 | disposition home or self-care (01) ==
LOC: ANHED 08-07 00:16 → ANHIMU 08-07 02:45
PROVIDERS: Internal Medicine; Admitting Provider Internal Medicine; Emergency Provider Emergency Medicine; PCP Family Medicine; Visit Provider Internal Medicine
PROC: 4A023N7 Measurement of Cardiac Sampling and Pressure, Left Heart, Percutaneous Approach (ICD-10-PCS; CPT 93452; principal; 2023-08-08 08:30)
DX: I50.21 Acute systolic (congestive) heart failure (principal); R77.8 Other specified abnormalities of plasma proteins; R79.89 Other specified abnormal findings of blood chemistry; I25.10 Atherosclerotic heart disease of native coronary artery without angina pectoris; I42.9 Cardiomyopathy, unspecified; I08.3 Combined rheumatic disorders of mitral, aortic and tricuspid valves; Z20.822 Contact with and (suspected) exposure to COVID-19; R94.31 Abnormal electrocardiogram [ECG] [EKG]; J84.9 Interstitial pulmonary disease, unspecified; F17.210 Nicotine dependence, cigarettes, uncomplicated
CPT/HCPCS: 36415; 71045; 80048; 80053; 83735; 83880; 84484; 85025; 85027; 87637; 93005; 93306; 93458; 96361; 96372; 96374; 96375; 96376; 99285; A9270; C1769; C1887; C1894; G0378; J1644; J1650; J1940; J2250; J2305; J2405; J3010; J7030; J7040

== ENCOUNTER 2023-10-26 16:36 | Emergency (ER) | payer MEDICARE, SELFPAY ==
--- NOTE | ~2023-10-26 | XR_ITS ---
XR chest 2V 10/26/2023 17:43 Indication: Weakness Procedure: 2 view chest Comparison: Comparison to multiple prior studies sequentially, with oldest reviewed study dated 11/22. Findings: Heart size normal. Lingular atelectasis. No focal pneumonia, edema, pleural effusion or pne umothorax. Impression: 1: Lingular atelectasis. Reviewed, dictated and finalized at location A. [facility] [employer] Impression: 1: Lingular atelectasis.
--- NOTE | 2023-10-26 16:53 | ECG_ITS ---
Measurements Intervals [place] Rate: 92 P: 42 VA: 134 QRS: 15 QRSD: 93 T: 144 QT: 376 QTc: 467 Interpretive Statements SINUS RHYTHM LEFT VENTRICULAR HYPERTROPHY AND ST-T CHANGE [VOLTAGE CRITERIA PLUS ST/T ABNORMALITY] COMPARED TO ECG 08/06/2023 21:06:19 NO SIGNIFICANT CHANGE Electronically Signed On 10-27-2023 13:37:20 GRINDING WHEEL FACER by Mira Gaxiola M.D.
[2023-10-26 17:05] VITALS: BP 156/111; PULSE 98; RESP 20; TEMP 36.6; O2SAT 98
[2023-10-26 17:32] LABS: Basophils Percent Auto 0.3 % (0.2-1.2); Eosinophils Percent Auto 0.3 % (0-4.4); Hematocrit 50.7 % (37.0-47.0); Hemoglobin 15.9 g/dL (12.0-15.0); Immature Granulocyte Absolute 0.01 K/mm3 (0.00-0.031); Immature Granulocyte Percent A 0.2 % (0-0.5); Lymphocytes Absolute Auto 2.19 K/mm3 (0.9-3.2); Lymphocytes Percent Auto 37.8 % (18.3-44.2); Mean Corpuscular HGB Conc 31.4 g/dl (32-36); Mean Corpuscular Hemoglobin 30.2 pg (26-34); Mean Corpuscular Volume 96.4 fl (80-100); Mean Platelet Volume 12.1 fl (7.4-10.4); Monocytes Absolute Auto 0.5 K/mm3 (0.1-0.6); Neutrophils Percent Auto 52.4 % (45.5-73.1); Platelet Count Result 140 k/mm3 (150-375); Red Blood Count 5.26 M/mm3 (4.2-5.4); Red Cell Distribution Width 13.2 % (11.5-14.5); White Blood Count 5.8 K/mm3 (4.5-10.0)
[2023-10-26 17:42] LABS: Alanine Aminotransferase 45 U/L (6-35); Albumin Level 4.2 g/dL (3.5-5.1); Alkaline Phosphatase 103 U/L (38-126); Anion Gap 13 mmol/L (8-16); Aspartate Amino Transferase 35 U/L (14-36); Bilirubin,Total 0.5 mg/dL (0.2-1.3); Blood Urea Nitrogen 17 mg/dL (7-17); Calcium 8.8 mg/dL (8.4-10.2); Carbon Dioxide 17 mmol/L (22-30); Chloride 111 mmol/L (98-107); Estimated CRCL calculation 57 ml/min; Estimated Glomerular Filt Rate > 60; Glucose 100 mg/dL (65-110); Potassium 3.5 mmol/L (3.4-5.0); Sodium 141 mmol/L (137-145)
[2023-10-26 17:45] LABS: Appearance Urine Clear (Clear); Bacteria Urine None Seen /hpf; Bilirubin Urine Negative (Negative); Blood Urine Negative (Negative); Color Urine Yellow (Yellow); Glucose Urine UA 3+ mg/dL (Negative); Ketones Urine Negative (Negative); Leukocyte Esterase Ur Negative LEU/UL (Negative); Nitrate Urine Negative (Negative); Non Pathogenic Casts 0-2; Protein Urine 1+ mg/dL (Negative); RBC Urine 0-2 /hpf (0-2); Specific Grav Ur 1.017 (1.001-1.035); Squamous Epithelial Cell Urine None seen /hpf (Few); WBC Urine 0-5 /hpf
[2023-10-26 17:59] LABS: Add Urine Microscopic? YES
--- NOTE | 2023-10-26 19:00 | ED.WEAKNESS ---
HPI - Weakness General Chief complaint: Weakness Stated complaint: Weak Time Seen by Provider: 10/26/23 18:32 Source: patient Mode of arrival: ambulatory Limitations: no limitations History of Present Illness HPI Narrative: This is a 68 year old female that presents to the ER for weakness. Reports she started to have cold symptoms one week ago. Reports runny nose and congestion. Also reports nausea and decreased appetite. Reports she feels weak today which prompted her to be seen. She tested positive for COVID 4 days ago. Denies fever, vomiting, cough, chest pain or shortness of breath. Related Data Allergies Allergy/AdvReac Type Severity Reaction Status Date / Time latex Allergy Unknown HIVES Verified 08/06/23 20:49 codeine AdvReac Unknown SEVERE Verified 08/07/23 14:18 STOMACH CRAMPS/N/V hydrocodone AdvReac Unknown NAUSEA/VOMI Verified 08/06/23 20:49 TING propoxyphene AdvReac Unknown SEVERE Verified 08/06/23 20:49 NAUSEA/VOMITING Review of Systems Review of Systems: CONSTITUTIONAL: Denies fever ENT: Reports rhinorrhea, congestion CARDIOVASCULAR: Denies chest pain, or edema. RESPIRATORY: Denies cough or dyspnea. GASTROINTESTINAL: Reports nausea. Denies abdominal pain, vomiting, or diarrhea. NEUROLOGIC: Reports generalized weakness. All systems reviewed & are unremarkable except as noted in HPI and below PMFSH Past Medical History Medical History (Updated 10/26/23 @ 21:00 by Jessenia Obrien PA-C) History of CHF (congestive heart failure) Family History Family History Father Colon cancer Sibling Diabetes mellitus Sibling Acute myocardial infarction Social History Social History Smoking packs per day: 0.5 Smoking cigarettes per day: 10.0 Years smoked: 50 Smoking pack-years: 25.00 Smoking status: Current every day smoker Tobacco type: cigarettes Alcohol intake: never Substance use: never Substance use type: does not use Lack of Transportation: No Lack of Food: Never True Current Housing: I Have Housing Concerned About Future Housing: No Difficulty Paying Gas/Electric Bills: No Difficulty Paying for Meds: No Currently Unemployed: No Education: Decline to Answer Difficulty w/ Childcare or Family Care: No Spiritual care concerns: No Exam Narrative: GENERAL: Well-appearing, well-nourished, and in no acute distress. HEAD: Normocephalic, atraumatic. EYES: EOMI. ENT: Nares clear, no rhinorrhea or epistaxis. Mucous membranes moist. Oropharynx without tonsillar hypertrophy exudate or other lesions. Bilateral TMs [place] non-bulging NECK: Supple. No adenopathy or masses. CHEST: Clear to auscultation. No respiratory distress. No wheezes rales or rhonchi HEART: Regular rate and rhythm. No murmur heard. Normal peripheral pulses. EXTREMITIES: Normal range of motion. No edema. SKIN: Warm, dry, no rash. NEURO: No focal deficits. Alert and oriented x3. PSYCH: Normal mood and affect Course Course Emergency Course: Patient updated on workup and agrees with plan of care Vital Signs Vital signs: Vital Signs Temperature 97.9 F 10/26/23 17:05 Pulse Rate 98 10/26/23 17:05 Respiratory Rate 20 10/26/23 17:05 Blood Pressure 156/111 H 10/26/23 17:05 Pulse Oximetry 98 10/26/23 17:05 Oxygen Delivery Room Air 10/26/23 17:05 Temperature 98.7 F 10/26/23 19:38 Pulse Rate 81 10/26/23 19:38 Respiratory Rate 13 10/26/23 19:38 Blood Pressure 165/90 H 10/26/23 19:38 Pulse Oximetry 97 10/26/23 19:38 Oxygen Delivery Room Air 10/26/23 17:05 MDM - Weakness MDM Narrative Medical decision making narrative: Patient presents to the emergency department for generalized weakness. COVID positive. She is afebrile and nontoxic appearing. Her vitals are stable. Oxygen saturation is normal on room air. Lungs are clear o
[2023-10-26 19:26] LABS: Troponin I 0.032 ng/mL (0.000-0.034)
[2023-10-26] MEDS: ONDANSETRON INJ 4 MG/2 ML VIAL IV PUSH (19:34)
[2023-10-26 19:38] VITALS: BP 165/90; PULSE 81; RESP 13; TEMP 37.1; O2SAT 97
[2023-10-26 21:26] VITALS: BP 152/90; PULSE 80; RESP 16; O2SAT 97
== END 2023-10-26 21:27 | disposition home or self-care (01) ==
PROVIDERS: Emergency Medicine; Emergency Provider Physician Assistant; PCP Family Medicine
DX: U07.1 COVID-19 (principal); I50.9 Heart failure, unspecified; F17.210 Nicotine dependence, cigarettes, uncomplicated; I51.7 Cardiomegaly
CPT/HCPCS: 36415; 71046; 80053; 81001; 84484; 85025; 93005; 99284; J2405

== ENCOUNTER 2024-04-05 08:59 | Outpatient (CLI) | payer MEDICARE, SELFPAY ==
--- NOTE | ~2024-04-05 | CT_ITS ---
EXAMINATION:CT lung screening DATE: 04/05/2024 09:21 INDICATION: Personal history of nicotine dependence. Current smoker with 50 pack year history. TECHNIQUE: Computed tomography (CT) of the chest was performed without intravenous contrast. Automate d exposure control and iterative reconstruction technique were employed. The dose-length product (DLP ) was 111.75 mGy-cm. COMPARISON: Chest CT 10/25/2016 FINDINGS: There is smooth septal thickening in the lungs, consistent mild pulmonary edema. There is m ild atelectasis bilaterally. There is a 16 mm nodule in left lower lobe in an area of airspace opacit ies suspicious for atelectasis or pneumonia. Cardiomegaly is noted. There is a trace pericardial effu galilea. There are coronary artery calcifications. There are changes of cholecystectomy. There is severe thoracic spondylosis. There is mild chronic anterior wedging of multiple vertebral bodies. IMPRESSION: 1. Lung-RADS category 0: Incomplete. Findings suggestive of an inflammatory or infectious process. No ncontrast low-dose chest CT is recommended in one month. 2. Mild pulmonary edema with small pleural effusions. Reviewed, dictated and finalized at location A. IMPRESSION: 1. Lung-RADS category 0: Incomplete. Findings suggestive of an inflammatory or infectious process. Noncontrast low-dose chest CT is recommended in one month. 2. Mild pulmonary edema with small pleural effusions.
== END 2024-04-05 09:00 ==
LOC: MICIMG 09:02
PROVIDERS: PCP Physician Assistant; Visit Provider Physician Assistant
DX: Z12.2 Encounter for screening for malignant neoplasm of respiratory organs (principal); J81.1 Chronic pulmonary edema; J90 Pleural effusion, not elsewhere classified; R91.8 Other nonspecific abnormal finding of lung field; Z87.891 Personal history of nicotine dependence
CPT/HCPCS: 71271

== ENCOUNTER 2024-05-17 09:43 | Outpatient (CLI) | payer MEDICARE, SELFPAY ==
--- NOTE | ~2024-05-17 | CT_ITS ---
CT Scan of the Chest without Contrast: Clinical Indication: Lung nodule Technique: Contiguous sections were acquired throughout the chest without intravenous contrast. Dose reduction technique was used on this scan by utilizing automated exposure control and iterative recon struction technique. The dose-length product (DLP) was 92.09 mGy-cm. COMPARISON: 04/05/2024 Findings: There is no evidence of any significant mediastinal, hilar or axillary lymphadenopathy. Extensive cor onary artery calcifications are present. There is no evidence of pleural or pericardial effusion. 1.5 cm irregular left lower lobe pulmonary nodule with mildly decreased in size from prior exam. Images through the upper abdomen reveal no abnormalities. Impression: 1.5 cm irregular left lower lobe pulmonary nodule is mildly decreased from prior exam. Reviewed, dictated and finalized at location . Impression: 1.5 cm irregular left lower lobe pulmonary nodule is mildly decreased from prio r exam.
== END 2024-05-17 09:44 ==
LOC: MICIMG 09:44
PROVIDERS: PCP Physician Assistant; Visit Provider Physician Assistant
DX: R91.1 Solitary pulmonary nodule (principal)
CPT/HCPCS: 71250

== ENCOUNTER 2025-03-29 10:02 | Outpatient (CLI) | payer MEDICARE, SELFPAY ==
--- NOTE | ~2025-03-29 | XR_ITS ---
HISTORY: Pleurodynia COMPARISON: Examination is compared with multiple prior studies. Chest radiograph dated 10/26/2023. CT examination of the chest performed most recently on 05/17/2024 and dating back to 10/25/2016 TECHNIQUE: 3 views of the left ribs were performed along with a PA and lateral of the chest FINDINGS: No acute displaced left-sided rib fracture is appreciated. Bone mineralization is age-appropriate. Cardiomediastinal silhouette is enlarged, unchanged. Platelike atelectasis within the left mid to lower lung field. Blunting of the left costophrenic sulcus suggesting a small left-sided pleural effusion. The remainder of the lungs demonstrate coarse interstitial lung markings, but are otherwise clear. IMPRESSION: No acute left-sided rib fracture. Platelike atelectasis within the left mid to lower lung field with a small left-sided pleural effusio n. Reviewed, dictated and finalized at location A. IMPRESSION: No acute left-sided rib fracture. Platelike atelectasis within the left mid to lower lung field with a small left -sided pleural effusion.
== END 2025-03-29 10:03 | disposition home or self-care (01) ==
LOC: MICIMG 10:11
PROVIDERS: PCP Physician Assistant; Visit Provider Physician Assistant
DX: R07.81 Pleurodynia (principal)
CPT/HCPCS: 71046; 71100